=== PATIENT | female | born 2000 | race American Indian/Alaskan Native ===

== ENCOUNTER 2021-06-18 11:47 | Observation (INO) | payer OTHER ==
--- NOTE | 2021-06-18 11:58 | Event Note ---
ED Screening Note ED Screening Note: Patient states 2 months ago she had a medical pill States since then she has had heavy vaginal bleeding She states that [place] [facility] [place] advised she had a hemoglobin of 5 and states that she received a blood transfusion States that she is [facility] on 06/21[facility]21 Reports to the ER due to pain, weakness, fatigue, and concerns that her blood counts are low She states that her bleeding has improved This initial assessment/diagnostic orders/clinical plan/treatment(s) is/are subject to change based on patients health status, clinical progression and re- assessment by fellow clinical providers in the ED. Further treatment and workup at subsequent clinical providers discretion. Patient/guardian urged not to elope from the ED as their condition may be serious if not clinically assessed and managed. Initial orders include: Labs
[2021-06-18 12:58] LABS: Alanine Aminotransferase 22 units/L (7-56); Albumin 4.1 g/dL (3.9-5); Blood Urea Nitrogen 12 mg/dL (7-17); Calcium 9.2 mg/dL (8.4-10.2); Hemolysis Index 2
[2021-06-18 13:09] LABS: BUN/Creatinine Ratio 24
[2021-06-18 14:58] LABS: Basophils # (Auto) 0.1 K/mm3 (0.0-0.1); Basophils % (Auto) 1.5 % (0.0-1.8); Eosinophils # (Auto) 0.1 K/mm3 (0.0-0.4); Eosinophils % (Auto) 1.7 % (0.0-4.3); Lymphocytes % (Auto) 13.4 % (13.4-35.0); Mean Corpuscular HGB Conc 32 % (30-34); Mean Corpuscular Volume 80 fl (79-97); Monocytes # (Auto) 0.5 K/mm3 (0.0-0.8); Monocytes % (Auto) 7.6 % (0.0-7.3); Platelet Count 268 K/mm3 (140-440); Red Cell Distribution Width 19.8 % (13.2-15.2)
[2021-06-18 15:02] LABS: Hematocrit 17.6 % (30.3-42.9); Hemoglobin 5.7 gm/dl (10.1-14.3)
[2021-06-18] MEDS ORDERED: LORazepam 2 MG/ML VIAL IV ONE (17:41)
--- NOTE | 2021-06-18 17:55 | Ultrasound Report ---
US pelvic complete INDICATION / CLINICAL INFORMATION: vaginal bleeding. TECHNIQUE: Transabdominal and Transvaginal. Duplex Color Doppler used: Yes. COMPARISON: None available FINDINGS: UTERUS: Measures 11.8 cm. -Thickened endometrial stripe measures 1.6 cm with increased hyperemia. - Mass lesions: None. RIGHT ADNEXA: No significant ovarian cyst or mass. Normal color Doppler blood flow. LEFT ADNEXA: No significant ovarian cyst or mass. Normal color Doppler blood flow. URINARY BLADDER: No significant abnormality. FREE FLUID: None. ADDITIONAL FINDINGS: None. IMPRESSION: 1. Findings consistent with retained products of conception. Signer Name: Steve Andrew MD Signed: 06/18/2021 5:50 PM Workstation Name: [id number]
[2021-06-18] MEDS ORDERED: SODIUM CHLORIDE 0.9% 500 ML 500 ML ONE (18:02)
[2021-06-18] MEDS ORDERED: SODIUM CHLORIDE 0.9% 500 ML 500 ML IV ONE (18:02)
--- NOTE | 2021-06-18 18:08 | Emergency Department Report ---
ED General Adult HPI - General Chief complaint: Vaginal Bleeding Stated complaint: DIFF BREATHING Time Seen by Provider: 06/18/21 11:56 Source: patient, family Mode of arrival: Wheelchair Limitations: No Limitations - History of Present Illness Initial comments: Patient presents to the emergency department with a chief complaint of vaginal bleeding that has been present for the last 2 months. Patient states that 2 months ago she took a pill to terminate and since that time has not had cessation of vaginal bleeding. Patient states that on 05/01/2021 she was seen at [facility] at the main campus and was transfused 2 units of blood and told to follow-up with gynecology. Patient states she is scheduled for a D&C with [facility] on Thursday of this week. Patient complains of mild abdominal cramping. Patient states that she is having exertional shortness of breath especially when walking. Denies chest pain. -: Sudden, unknown (2 months ago) Location: abdomen Radiation: non-radiation Severity scale (0 -10): 2 (Cramping in nature) Quality: other (Cramping in nature) Consistency: constant Improves with: none Worsens with: none Associated Symptoms: denies other symptoms Treatments Prior to Arrival: none - Related Data Home Medications Medication Instructions Recorded Confirmed Last Taken Ferrous Sulfate [Feosol] 325 mg PO QDAY 06/17/21 06/17/21 Unknown Allergies Allergy/AdvReac Type Severity Reaction Status Date / Time No Known Allergies Allergy Verified 06/17/21 15:00 ED Review of Systems ROS: Stated complaint: DIFF BREATHING Other details as noted in HPI Comment: All other systems reviewed and negative Constitutional: denies: chills, fever Eyes: denies: eye pain, eye discharge, vision change ENT: denies: ear pain, throat pain Respiratory: denies: cough, shortness of breath, wheezing Cardiovascular: denies: chest pain, palpitations Endocrine: no symptoms reported Gastrointestinal: denies: abdominal pain, nausea, diarrhea Genitourinary: other (Vaginal bleeding). denies: urgency, dysuria, discharge Musculoskeletal: denies: back pain, joint swelling, arthralgia Skin: denies: rash, lesions Neurological: denies: headache, weakness, paresthesias Psychiatric: denies: anxiety, depression Hematological/Lymphatic: denies: easy bleeding, easy bruising ED Past Medical Hx - Past Medical History Previous Medical History?: Yes Hx Hypertension: No Hx Headaches / Migraines: Yes (MIGRAINES) Additional medical history: SVT. high cholestrol. anemia - Surgical History Additional Surgical History: ablation 10/2014 - Social History Smoking Status: Never Smoker - Medications Home Medications: Home Medications Medication Instructions Recorded Confirmed Last Taken Type Ferrous Sulfate [Feosol] 325 mg PO QDAY 06/17/21 06/17/21 Unknown History ED Physical Exam - General Limitations: No Limitations General appearance: alert, in no apparent distress - Head Head exam: Present: atraumatic, normocephalic - Eye Eye exam: Present: normal appearance, PERRL, EOMI - ENT ENT exam: Present: mucous membranes moist - Neck Neck exam: Present: normal inspection - Respiratory Respiratory exam: Present: normal lung sounds bilaterally. Absent: respiratory distress - Cardiovascular Cardiovascular Exam: Present: normal rhythm, tachycardia. Absent: systolic murmur, diastolic murmur, rubs, gallop - GI/Abdominal GI/Abdominal exam: Present: soft, normal bowel sounds. Absent: distended, tenderness - External exam: Present: other (Deferred) Speculum exam: Present: other (Deferred) Bi-manual exam: Present: other (Deferred) - Extremities Exam Extremities exam: Present: normal inspection - Back Exam Back exam: Present: normal inspection - Neurological Exam Neurological exam: Present: alert, oriented X3, CN II-XII intact. Absent: motor sensory deficit - Psychiatric Psychiatric exam: Present: normal affect, normal mood, anxious - Skin Skin exam: Present: warm, dry, intact, normal color. Absent: rash ED Course Vital Signs 06/18/21 15:36 O2 Sat by Pulse 98 Oximetry ED Medical Decision Making - Lab Data Result diagrams: 06/18/21 12:17 06/18/21 12:17 Lab Results 06/18/21 06/18/21 06/18/21 Range/Units 12:17 12:17 12:17 WBC 7.2 (4.5-11.0) K/mm3 RBC 2.20 L (3.65-5.03) M/mm3 Hgb 5.7 L* (10.1-14.3) gm/dl Hct 17.6 L* (30.3-42.9) % MCV 80 (79-97) fl MCH 26 L (28-32) pg MCHC 32 (30-34) % RDW 19.8 H (13.2-15.2) % Plt Count 268 (140-440) K/mm3 Lymph % (Auto) 13.4 (13.4-35.0) % [place] % (Auto) 7.6 H (0.0-7.3) % Eos % (Auto) 1.7 (0.0-4.3) % Baso % (Auto) 1.5 (0.0-1.8) % Lymph # (Auto) 1.0 L (1.2-5.4) K/mm3 [place] # (Auto) 0.5 (0.0-0.8) K/mm3 Eos # (Auto) 0.1 (0.0-0.4) K/mm3 Baso # (Auto) 0.1 (0.0-0.1) K/mm3 Seg Neutrophils % 75.8 H (40.0-70.0) % Seg Neutrophils # 5.5 (1.8-7.7) K/mm3 Sodium 137 (137-145) mmol/L Potassium 3.7 (3.6-5.0) mmol/L Chloride 103.1 (98-107) mmol/L Carbon Dioxide 21 L (22-30) mmol/L Anion Gap 17 mmol/L BUN 12 (7-17) mg/dL Creatinine 0.5 L (0.6-1.2) mg/dL Estimated GFR > 60 ml/min BUN/Creatinine Ratio 24 % Glucose 89 (65-100) mg/dL Calcium 9.2 (8.4-10.2) mg/dL Total Bilirubin 0.30 (0.1-1.2) mg/dL AST 24 (5-40) units/L ALT 22 (7-56) units/L Alkaline Phosphatase 72 (35-129) units/L Total Protein 6.7 (6.3-8.2) g/dL Albumin 4.1 (3.9-5) g/dL Albumin/Globulin Ratio 1.6 % HCG, Quant 67.32 H (0-4) mIU/mL Blood Type Antibody Screen Crossmatch 06/18/21 Range/Units 12:20 WBC (4.5-11.0) K/mm3 RBC (3.65-5.03) M/mm3 Hgb (10.1-14.3) gm/dl Hct (30.3-42.9) % MCV (79-97) fl MCH (28-32) pg MCHC (30-34) % RDW (13.2-15.2) % Plt Count (140-440) K/mm3 Lymph % (Auto) (13.4-35.0) % [place] % (Auto) (0.0-7.3) % Eos % (Auto) (0.0-4.3) % Baso % (Auto) (0.0-1.8) % Lymph # (Auto) (1.2-5.4) K/mm3 [place] # (Auto) (0.0-0.8) K/mm3 Eos # (Auto) (0.0-0.4) K/mm3 Baso # (Auto) (0.0-0.1) K/mm3 Seg Neutrophils % (40.0-70.0) % Seg Neutrophils # (1.8-7.7) K/mm3 Sodium (137-145) mmol/L Potassium (3.6-5.0) mmol/L Chloride (98-107) mmol/L Carbon Dioxide (22-30) mmol/L Anion Gap mmol/L BUN (7-17) mg/dL Creatinine (0.6-1.2) mg/dL Estimated GFR ml/min BUN/Creatinine Ratio % Glucose (65-100) mg/dL Calcium (8.4-10.2) mg/dL Total Bilirubin (0.1-1.2) mg/dL AST (5-40) units/L ALT (7-56) units/L Alkaline Phosphatase (35-129) units/L Total Protein (6.3-8.2) g/dL Albumin (3.9-5) g/dL Albumin/Globulin Ratio % HCG, Quant (0-4) mIU/mL Blood Type O POSITIVE Antibody Screen Negative Crossmatch See Detail - Radiology Data Radiology results: report reviewed - Medical Decision Making Blood transfusion initiated in the ED Discussed plan of care and results with the patient Spoke with Dr. Mckeon who will admit the patient to mother-baby Critical Care Time: Yes Critical care time in (mins) excluding proc time.: 35 Critical care attestation.: If time is entered above; I have spent that time in minutes in the direct care of this critically ill patient, excluding procedure time. ED Disposition Clinical Impression: Anemia requiring transfusions, DUB (dysfunctional uterine bleeding), Retained products of conception Disposition: 09 OP ADMIT IP TO THIS HOSP Is pt being admited?: Yes Does the pt Need Aspirin: No Condition: Fair Referrals: PRIMARY CARE, [Primary Care Provider] - 3-5 Days
[2021-06-18] MEDS ORDERED: HYDROcodone/ACETAMINOPHEN 5-325 MG TAB PO PRN (21:23)
[2021-06-18] MEDS ORDERED: LACTATED RINGERS 1,000 ML IV SCH (21:30)
--- NOTE | 2021-06-18 21:50 | History and Physical Report ---
History of Present Illness Date of examination: 06/18/21 Date of admission: 06/18/21 18:14 Chief complaint: anemia and vaginal bleeding. History of present illness: Patient is a 20-year-old Afro-Swedish female 1 para 0-0-1-0. She had a medically induced several weeks ago. Her ultrasound shows tissue inside endometrial cavity and the patient is bleeding and has anemia. She is scheduled for D&C on Thursday this week. She was admitted for observation with transfusion of 2 units of packed cells today. Past History Past Medical History: no pertinent history Past Surgical History: no surgical history Family/Genetic History: none Social history: single Medications and Allergies Allergies Allergy/AdvReac Type Severity Reaction Status Date / Time No Known Allergies Allergy Verified 06/17/21 15:00 Home Medications Medication Instructions Recorded Confirmed Last Taken Type Ferrous Sulfate [Feosol] 325 mg PO QDAY 06/17/21 06/17/21 Unknown History Active Meds: Active Medications Hydrocodone Bitart/Acetaminophen (Hydrocodone/Acetaminophen 5-325 Mg Tab) 1 each PO Q6H PRN PRN Reason: Pain, Moderate (4-6) Lactated Ringer's (Lactated Ringers) 1,000 mls @ 125 mls/hr IV DIRECT MAIA Review of Systems All systems: negative - Vital Signs Vital signs: Vital Signs Temp Pulse Resp BP Pulse Ox 98.3 F 115 H 20 123/50 100 06/18/21 11:53 06/18/21 11:53 06/18/21 11:53 06/18/21 11:53 06/18/21 11:53 Temp Pulse Resp BP Pulse Ox 98.8 F 97 H 20 128/73 100 06/18/21 20:40 06/18/21 20:40 06/18/21 20:40 06/18/21 20:40 06/18/21 20:40 - Physical Exam Breasts: Cardiovascular: Regular rate, Normal S1, Normal S2 Abdomen: Positive: normal appearance, soft, normal bowel sounds. Negative: distention, tenderness Genitourinary (Female): Positive: normal external genitalia Vulva: both: normal Vagina: Positive: normal moisture. Negative: discharge Cervix: Positive: other (Blood in cervix cervix slightly dilated). Negative: lesion, discharge Uterus: Positive: normal size, normal contour Adnexa: both: normal Anus/Rectum: Positive: normal perianal skin, heme negative. Negative: rectal mass, hemorrhoids Extremities: Positive: normal Deep Tendon Reflex Grade: Normal +2 Results Result Diagrams: 06/18/21 12:17 06/18/21 12:17 Abnormal lab results 06/18/21 06/18/21 06/18/21 Range/Units 12:17 12:17 12:17 RBC 2.20 L (3.65-5.03) M/mm3 Hgb 5.7 L* (10.1-14.3) gm/dl Hct 17.6 L* (30.3-42.9) % MCH 26 L (28-32) pg RDW 19.8 H (13.2-15.2) % [place] % (Auto) 7.6 H (0.0-7.3) % Lymph # (Auto) 1.0 L (1.2-5.4) K/mm3 Seg Neutrophils % 75.8 H (40.0-70.0) % Carbon Dioxide 21 L (22-30) mmol/L Creatinine 0.5 L (0.6-1.2) mg/dL HCG, Quant 67.32 H (0-4) mIU/mL Crossmatch 06/18/21 Range/Units 12:20 RBC (3.65-5.03) M/mm3 Hgb (10.1-14.3) gm/dl Hct (30.3-42.9) % MCH (28-32) pg RDW (13.2-15.2) % [place] % (Auto) (0.0-7.3) % Lymph # (Auto) (1.2-5.4) K/mm3 Seg Neutrophils % (40.0-70.0) % Carbon Dioxide (22-30) mmol/L Creatinine (0.6-1.2) mg/dL HCG, Quant (0-4) mIU/mL Crossmatch See Detail All other labs normal. Assessment and Plan - Patient Problems (1) Anemia requiring transfusions Current Visit: Yes Status: Acute (2) DUB (dysfunctional uterine bleeding) Current Visit: Yes Status: Acute (3) Retained products of conception Current Visit: Yes Status: Acute Plan to address problem: Transfusion with 2 units of packed cells on today. The patient is to have a D&C suction curettage in 3 days this hospital.
[2021-06-18] MEDS ORDERED: ZOLPIDEM 5 MG TAB PO PRN (21:56)
[2021-06-19 06:40] LABS: Hematocrit 23.1 % (30.3-42.9); Hemoglobin 7.7 gm/dl (10.1-14.3)
--- NOTE | 2021-06-19 08:50 | Ultrasound Report ---
ULTRASOUND TRANSVAGINAL HISTORY: Vaginal bleeding TECHNIQUE: Transvaginal ultrasound with color Doppler imaging. COMPARISON: Ultrasound pelvic transabdominal performed at the same time. FINDINGS: This examination is just presented to me for interpretation due to technical factors at the hospital. The transabdominal component of this exam was dictated yesterday by another radiologist. Transvaginal images demonstrate a retroflexed uterus measuring 11.8 x 3.7 x 5.6 cm. No obvious uterin e fibroid disease is appreciated. The endometrial stripe is heterogeneous with cystic and solid components and thickened up to 1.6 cm a nd demonstrates hyperemia on color Doppler interrogation. The right ovary is unremarkable measuring 3.7 x 2.6 x 4.1 cm. The left ovary is unremarkable measurin g 3.0 x 2.2 x 3.4 cm. No pelvic fluid collection, cyst or mass is appreciated. IMPRESSION: Abnormal endometrium as described above concerning for retained products of conception. Please correl ate with the patient's clinical history. Signer Name: Tee Shah Jr, MD Signed: 06/19/2021 8:45 AM Workstation Name: [id number]
[2021-06-19 12:18] VITALS: BP 131/76
--- NOTE | 2021-06-19 12:24 | Discharge Summary ---
Providers - Providers Date of Admission: 06/18/21 18:14 Date of discharge: 06/19/21 Attending physician: RIVERA HALL MD Primary care physician: DOUGH MIXER OPERATOR Hospitalization Reason for admission: vaginal bleeding, other (symptomatic anemia) Hospital course: 20-year-old complicated by history of anemia status post transfusion x1 in April 2021 at [facility], history of failed medical with planned D&C this Thursday06-21-2021 presenting with symptomatic anemia admitted for 2 units of blood and observation. Patient reports that she is much better status post transfusion and is agreeable for discharge with plan for surgical management of retained products of conception this Thursday06-21-2021. Condition at discharge: Fair Disposition: DC-01 TO HOME OR SELFCARE Plan - Provider Discharge Summary Activity: routine Diet: routine Instructions: routine Additional instructions: [] Smoking cessation referral if applicable(refer to patient education folder for contact #) [] Refer to [facility] Booklet Call your doctor immediately for: * Fever > 100.5 * Heavy vaginal bleeding ( >1 pad per hour) * Severe persistent headache * Shortness of breath * Reddened, hot, painful area to leg or breast * Drainage or odor from incision. * Keep incision clean and dry at all times and follow doctor's instructions regarding bathing/showering - Follow up plan Follow up: PRIMARY CARE, [Primary Care Provider] - 3-5 Days Forms: [facility] Discharge Summary
== END 2021-06-19 13:20 | disposition home or self-care (01) ==
LOC: ED 11:47 → OB 18:14
DX: D64.9 Anemia, unspecified (principal); O07.4 Failed attempted termination of pregnancy without complication; N93.8 Other specified abnormal uterine and vaginal bleeding; G43.909 Migraine, unspecified, not intractable, without status migrainosus; E78.00 Pure hypercholesterolemia, unspecified; I47.1 Supraventricular tachycardia; Z79.899 Other long term (current) drug therapy; Z98.890 Other specified postprocedural states
CPT/HCPCS: 36415; 36430; 76830; 76856; 80053; 84702; 85014; 85018; 85025; 86850; 86900; 86901; 86920; 96374; 99291; G0378; J2060; J7040; J7120; P9016

== ENCOUNTER 2021-06-21 08:50 | Day surgery (SDC) | payer MEDICAID, OTHER ==
[2021-06-21] MEDS ORDERED: HYDROmorphone 1 MG/1 ML INJ IV PRN (09:29)
[2021-06-21] MEDS ORDERED: ONDANSETRON 4 MG/2 ML INJ IV PRN (09:29)
[2021-06-21] MEDS ORDERED: LACTATED RINGERS 1,000 ML IV SCH (09:30)
--- NOTE | 2021-06-21 09:33 | Anesthesia Day of Surgery ---
Anesthesia Day of Surgery - Day of Surgery Patient Examined: Yes Patient H&P Reviewed: Yes Patient is NPO: Yes
--- NOTE | 2021-06-21 09:36 | Anesthesia Consultation ---
Anesthesia Consult and Med Hx Date of service: 06/21/21 - Airway Anesthetic Teeth Evaluation: Good (Has tooth gems cemented on) ROM Head & Neck: Adequate Mental/Hyoid Distance: Adequate Mallampati Class: Class I Intubation Access Assessment: Good - Pre-Operative Health Status ASA Pre-Surgery Classification: ASA3 Proposed Anesthetic Plan: General - Pulmonary Hx Smoking: Yes (smoking Hookah) Hx Asthma: No SOB: No COPD: No Hx Pneumonia: No Hx Sleep Apnea: No - Cardiovascular System Hx Hypertension: No Hx Coronary Artery Disease: No Hx Heart Attack/AMI: No Hx Angina: No Hx Percutaneous Transluminal Coronary Angioplasty (PTCA): No Hx Cardia Arrhythmia: Yes (Hx SVT-had ablation. Reports palpitations) Hx Pacemaker: No Hx Internal Defibrillator: No Hx Valvular Heart Disease: No Hx Heart Murmur: Yes Hx Peripheral Vascular Disease: No - Central Nervous System CVA: Yes (? Was seen in our ER for CVA) Hx Back Pain: No Hx Psychiatric Problems: No - Gastrointestinal Hx Ulcer: No - Endocrine Hx Renal Disease: No Hx End Stage Renal Disease: No Hx Cirrhosis: No Hx Liver Disease: No Hx Hypothyroidism: No Hx Hyperthyroidism: No - Hematic Hx Anemia: Yes (Was 5.7/17.6 and tx'd blood to 7.7/23.1 [id number]) Hx Sickle Cell Disease: No - Other Systems Hx Alcohol Use: Yes (occassional) Hx Substance Use: Yes (MJ) Hx Cancer: No Hx Obesity: No
[2021-06-21] MEDS ORDERED: MIDAZOLAM 2 MG/2 ML INJ IV NR (10:00)
[2021-06-21] MEDS ORDERED: SILVER NITRATE APPLICATOR 1 EA TP ONE (10:08)
[2021-06-21] MEDS ORDERED: METHYLERGONOVINE MALEATE 0.2 MG/ML VIAL IM ONE (10:09)
[2021-06-21] MEDS ORDERED: LIDOCAINE PF 100 MG/5 ML (CARDIAC SYRINGE) IV ONE (10:35)
[2021-06-21] MEDS ORDERED: fentaNYL 100 MCG/2 ML INJ ONE (10:35)
[2021-06-21] MEDS ORDERED: propofoL 200 MG/20 ML VIAL IV ONE (10:35)
[2021-06-21 10:38] LABS: Hemoglobin 9.9 gm/dl (10.1-14.3); Mean Corpuscular HGB Conc 32 % (30-34); Mean Corpuscular Volume 84 fl (79-97); Platelet Count 275 K/mm3 (140-440); Red Blood Count 3.68 M/mm3 (3.65-5.03); Red Cell Distribution Width 19.8 % (13.2-15.2)
--- NOTE | 2021-06-21 10:46 | Operative Report ---
Operative Report Operative Report: Preoperative diagnosis: Incomplete Postoperative diagnosis: Same Procedure: Suction dilation and curettage Surgeon: Dr. Yani Del Toro Assist: None Anesthesia: GETA Complications: None IV fluids: 1 L crystalloid EBL: Minimal Urine output: 100 cc clear urine Drains: None Specimen: Products of conception sent to pathology Findings: 6-week size uterus with no palpable adnexal masses Procedure: Patient was counseled in preop holding area about risks benefits possible complications as well as alternatives to the procedure. Form consent was obtained. She was taken to the operating room where she received excellent general endotracheal anesthesia. She was then placed in the dorsal lithotomy p osition, prepped and draped in a sterile fashion. A timeout was verified. Using a red rubber the catheter 100 cc of clear urine was obtained. Speculum was then placed in the vaginal vault, the cervix was identified and grasped on the anterior lip with a single-tooth tenaculum. The cervix was dilated to allow for passage of a #8 curved suction curette. Products of conception were then evacuated using suction, the uterus confirmed empty using a Kevorkian curette at the completion of the procedure. Minimal vaginal bleeding during the procedure. The tenaculum and speculum were removed from the anterior lip of the cervix and the vagina respectively at the completion of the procedure. The uterus is noted to be firm at the completion of the procedure. All sponge needle and instrument counts were correct x2. There were no complications. Patient was extubated and taken to the recovery area in stable condition. Patient's family notified of her stable condition at the completion of the procedure. She will follow-up in the outpatient setting in 1 week. Rosangela Del Toro MD
[2021-06-21] MEDS ORDERED: SODIUM CHLORIDE 0.9% IRR 1,500 ML BOTTLE IR ONE (10:52)
[2021-06-21] MEDS ORDERED: ONDANSETRON 4 MG/2 ML INJ ONE (11:14)
[2021-06-21] MEDS: HYDROmorphone 1 MG/1 ML INJ IV PRN ×2 (11:40→11:50)
[2021-06-21 12:00] VITALS: BP 117/78
--- NOTE | 2021-06-21 14:26 | Post Anesthesia Evaluation ---
- Post Anesthesia Evaluation Patient Participated: Yes Airway Patent: Yes Stable Respiratory Function: Yes Nausea/Vomiting: No Temp > 96.8F: Yes Pain Manageable: Yes Adequeate Hydration: Yes Anesthesia Complications: No Block Receding Appropriately: Not Applicable Patient on Ventilator: No
== END 2021-06-21 12:29 | disposition home or self-care (01) ==
LOC: OR 08:50
PROVIDERS: ATTEND Obstetrics & Gynecology
DX: O03.4 Incomplete spontaneous abortion without complication (principal); D64.9 Anemia, unspecified; Z79.899 Other long term (current) drug therapy; Z98.890 Other specified postprocedural states; Z82.49 Family history of ischemic heart disease and other diseases of the circulatory system
CPT/HCPCS: 36415; 59812; 85027; 88305; J1170; J2001; J2250; J2405; J2704; J3010; J7120; J2210

== ENCOUNTER 2022-05-16 10:18 | Outpatient (CLI) | payer OTHER, MEDICAID ==
[2022-05-16 12:41] LABS: Mucus,Urine FEW /HPF
[2022-05-16 12:43] LABS: Bilirubin,Urine Negative (Negative); Blood,Urine Negative (Negative); Color,Urine Straw (Yellow)
[2022-05-16 12:44] LABS: Protein,Urine <15 mg/dL mg/dL (Negative); Urobilinogen,Urine < 2.0 mg/dL (<2.0)
--- NOTE | 2022-05-16 13:07 | Ultrasound Report ---
ULTRASOUND OBSTETRIC LIMITED ULTRASOUND BIOPHYSICAL PROFILE INDICATION / CLINICAL INFORMATION: Leaking Fluid, Well Being, BPP RHODA. - Clinical Gestational Age (GA) in weeks, days: 31, 3 TECHNIQUE: Transabdominal. COMPARISON: None available. FINDINGS: BREATHING MOVEMENT = 2 GROSS BODY MOVEMENT = 2 TONE = 2 QUALITATIVE AMNIOTIC FLUID VOLUME = 2 TOTAL BIOPHYSICAL SCORE = 8/8 HEART RATE (beats per minute): 125-133 AMNIOTIC FLUID INDEX (cm) = 12.7 (normal = 7-24 cm) PRESENTATION: Cephalic. ADDITIONAL FINDINGS: None. IMPRESSION: 1. Biophysical Score = 8/8 2. RHODA 12.7 cm. Signer Name: Octavio Jackson MD Signed: 05/16/2022 1:03 PM Workstation Name: [email or web address]
[2022-05-16 13:40] VITALS: BP 112/63
[2022-05-16] MEDS ORDERED: BETAMET ACET/BETAMET NA PH 6 MG/ML INJ 5 ML MDV IM SCH (14:00)
== END 2022-05-16 14:18 | disposition home or self-care (01) ==
LOC: TRG 10:18 → APU 10:23 → TRG 14:18
PROVIDERS: ATTEND Obstetrics & Gynecology
DX: O42.913 Preterm premature rupture of membranes, unspecified as to length of time between rupture and onset of labor, third trimester (principal); O26.893 Other specified pregnancy related conditions, third trimester; R10.30 Lower abdominal pain, unspecified; O99.353 Diseases of the nervous system complicating pregnancy, third trimester; G43.909 Migraine, unspecified, not intractable, without status migrainosus; Z3A.31 31 weeks gestation of pregnancy
CPT/HCPCS: 36415; 59025; 76815; 76819; 81001; 82731; 84112; 96372; J0702

== ENCOUNTER 2022-05-17 13:23 | Outpatient (CLI) | payer OTHER, MEDICAID ==
[2022-05-17] MEDS ORDERED: BETAMET ACET/BETAMET NA PH 6 MG/ML INJ 5 ML MDV IM ONE (13:41)
== END 2022-05-17 14:19 | disposition home or self-care (01) ==
LOC: LD 13:23 → TRG 13:23
PROVIDERS: ATTEND Obstetrics & Gynecology
DX: Z34.93 Encounter for supervision of normal pregnancy, unspecified, third trimester (principal); Z3A.31 31 weeks gestation of pregnancy
CPT/HCPCS: 96372; J0702

== ENCOUNTER 2022-06-22 18:22 | Outpatient (CLI) | payer MEDICAID ==
[2022-06-22 22:40] VITALS: BP 112/70
--- NOTE | 2022-06-22 23:17 | Ultrasound Report ---
ULTRASOUND OBSTETRIC LIMITED ULTRASOUND BIOPHYSICAL PROFILE INDICATION / CLINICAL INFORMATION: Evaluate well-being. COMPARISON: OB ultrasound performed on 05/16/2022. FINDINGS: BREATHING MOVEMENT = 2 GROSS BODY MOVEMENT = 2 TONE = 2 QUALITATIVE AMNIOTIC FLUID VOLUME = 2 TOTAL BIOPHYSICAL SCORE = 8/8 AMNIOTIC FLUID INDEX (cm) = 13.0 PRESENTATION: Cephalic. HEART RATE (beats per minute): 133 ADDITIONAL FINDINGS: None. IMPRESSION: 1. Biophysical Score = 8/8 2. No significant abnormality. Signer Name: James Lewis MD Signed: 06/22/2022 11:13 PM Workstation Name: [id number]
== END 2022-06-22 22:41 | disposition home or self-care (01) ==
LOC: TRG 18:22 → APU 18:22 → TRG 22:41
PROVIDERS: ATTEND Obstetrics & Gynecology
DX: O47.03 False labor before 37 completed weeks of gestation, third trimester (principal); O42.90 Premature rupture of membranes, unspecified as to length of time between rupture and onset of labor, unspecified weeks of gestation; Z3A.36 36 weeks gestation of pregnancy
CPT/HCPCS: 36415; 76815; 76819; 84112

== ENCOUNTER 2022-07-12 16:49 | Inpatient (IN) | payer MEDICAID ==
[2022-07-12] MEDS ORDERED: miSOPROStol 200 MCG TAB PR PRN (18:00)
[2022-07-12] MEDS ORDERED: LIDOCAINE (2%) 20 MG/1 ML VIAL 20 ML MDV INFILTRATI NR (18:00)
[2022-07-12] MEDS ORDERED: ePHEDrine SULFATE 50 MG/1 ML INJ IV PRN (18:00)
[2022-07-12] MEDS ORDERED: ACETAMINOPHEN 325 MG TAB PO PRN (18:00)
[2022-07-12] MEDS ORDERED: CARBOPROST TROMETHAMINE 250 MCG/1 ML INJ IM PRN (18:00)
[2022-07-12] MEDS ORDERED: LOPERAMIDE 2 MG CAP PO PRN (18:00)
[2022-07-12] MEDS ORDERED: BUTORPHANOL 2 MG/1 ML INJ IV PRN ×2 (18:00)
[2022-07-12] MEDS ORDERED: OXYTOCIN 10 UNIT/1 ML INJ IM PRN (18:00)
[2022-07-12] MEDS ORDERED: LACTATED RINGERS 1,000 ML IV SCH (18:00)
[2022-07-12] MEDS ORDERED: METHYLERGONOVINE MALEATE 0.2 MG/ML VIAL IM PRN (18:00)
[2022-07-12] MEDS ORDERED: TERBUTALINE 1 MG/1 ML INJ SUB-Q PRN (18:00)
[2022-07-12] MEDS ORDERED: MINERAL OIL 30 ML ORAL LIQD PO PRN (18:00)
[2022-07-12] MEDS ORDERED: OXYTOCIN DRIP 30 UNITS/500 ML BAG IV SCH ×2 (19:00)
--- NOTE | 2022-07-12 19:29 | History and Physical Report ---
History of Present Illness Date of examination: 07/12/22 Date of admission: 07/12/22 18:09 Chief complaint: Here with C/O labor contractions History of present illness: 21 y/o AB1 presents to labor and delivery with C/O contractions. She had care at [facility]. She is GBS negative. She has a HX of SVT and a heart murmur and sees cardiology. Past History Past Medical History: other (HX of SVT- had ablation) Past Surgical History: other (ablation) Family/Genetic History: hypertension Social history: no significant social history - Obstetrical History Expected Date of Delivery: 07/15/22 Actual Gestation: 39 Week(s) 4 Day(s) : 2 Para: 0 Induced : 1 Medications and Allergies Allergies Allergy/AdvReac Type Severity Reaction Status Date / Time No Known Allergies Allergy Verified 05/16/22 11:26 Home Medications Medication Instructions Recorded Confirmed Last Taken Type Vit No.179/Iron/Folic 1 each PO DAILY 05/16/22 07/12/22 07/12/22 09:00 History [ Tablet] Active Meds: Active Medications Acetaminophen (Acetaminophen 325 Mg Tab) 650 mg PO Q4H PRN PRN Reason: Pain, Mild (1-3) Butorphanol Tartrate (Butorphanol 2 Mg/1 Ml Inj) 1 mg IV Q2H PRN PRN Reason: Pain, Moderate(4-6) LABOR PAIN Butorphanol Tartrate (Butorphanol 2 Mg/1 Ml Inj) 2 mg IV Q2H PRN PRN Reason: Pain , Severe (7-10) Carboprost Tromethamine (Carboprost Tromethamine 250 Mcg/1 Ml Inj) 250 mcg IM ONCE PRN PRN Reason: Uterine Bleeding Ephedrine Sulfate (Ephedrine Sulfate 50 Mg/1 Ml Inj) 10 mg IV Q2M PRN PRN Reason: Hypotension Oxytocin/Sodium Chloride (Pitocin/Ns 30 Unit/500ml) 30 units in 500 mls @ 2 mls/hr IV TITR MAIA; Protocol Lactated Ringer's (Lactated Ringers) 1,000 mls @ 125 mls/hr IV DIRECT MAIA Oxytocin/Sodium Chloride (Pitocin/Ns 30 Unit/500ml) 30 units in 500 mls @ 40 mls/hr IV TITR MAIA; Protocol Loperamide HCl (Loperamide 2 Mg Cap) 2 mg PO ONCE PRN PRN Reason: give with Hemabate Methylergonovine Maleate (Methylergonovine Maleate 0.2 Mg/Ml Vial) 0.2 mg IM ONCE PRN PRN Reason: Uterine Bleeding Mineral Oil (Mineral Oil 30 Ml Oral Liqd) 30 ml PO QHS PRN PRN Reason: Constipation Misoprostol (Misoprostol 200 Mcg Tab) 800 mcg NE ONCE PRN PRN Reason: Uterine Bleeding Oxytocin (Oxytocin 10 Unit/1 Ml Inj) 10 unit IM ONCE PRN PRN Reason: Uterine Bleeding Terbutaline Sulfate (Terbutaline 1 Mg/1 Ml Inj) 0.25 mg SUB-Q ONCE PRN PRN Reason: Hyperstimulation/Hypertonicity Review of Systems All systems: negative - Vital Signs Vital signs: Vital Signs Pulse BP Pulse Ox 94 H 137/88 99 07/12/22 17:14 07/12/22 17:14 07/12/22 17:14 Temp Pulse Resp BP Pulse Ox 84 147/94 98 07/12/22 19:20 07/12/22 18:44 07/12/22 19:20 - Physical Exam Breasts: Positive: deferred Cardiovascular: Regular rate Abdomen: Positive: soft Genitourinary (Female): Positive: normal external genitalia Vulva: both: normal Vagina: Positive: normal moisture Uterus: Positive: enlarged Adnexa: both: normal Deep Tendon Reflex Grade: Normal +2 - Obstetrical FHR: category 1 Uterine Contraction Monitor Mode: Palpation Cervical Dilatation: 3 Cervical Effacement Percentage: 70 station: -1 Uterine Contraction Frequency (min): every 4-6 Uterine Contraction Pattern: Irregular Uterine Contraction Intensity: Moderate Results All other labs normal. Assessment and Plan A: Early labor @ 39.4 weeks P: Admit and augment cytotec
[2022-07-12] MEDS ORDERED: miSOPROStol 25 MCG TAB VG PRN (19:33)
[2022-07-12 20:56] LABS: Hematocrit 35.4 % (30.3-42.9); Hemoglobin 12.6 gm/dl (10.1-14.3); Mean Corpuscular HGB Conc 36 % (30-34); Mean Corpuscular Volume 94 fl (79-97); Platelet Count 184 K/mm3 (140-440); Red Blood Count 3.75 M/mm3 (3.65-5.03); Red Cell Distribution Width 14.2 % (13.2-15.2)
[2022-07-13] MEDS ORDERED: NALOXONE 0.4 MG/1 ML INJ IV PRN (02:46)
[2022-07-13] MEDS ORDERED: ePHEDrine SULFATE 50 MG/1 ML INJ IV PRN (02:46)
[2022-07-13] MEDS ORDERED: fentaNYL-BUPIV 2 MCG/ML-0.125% 200 MCG/100 ML BAG EPIDURAL SCH (02:46)
--- NOTE | 2022-07-13 02:49 | Anesthesia Day of Surgery ---
Anesthesia Day of Surgery - Day of Surgery Patient Examined: Yes Patient H&P Reviewed: Yes Patient is NPO: Yes Beta Blockers: No Cardiac Clearance: No Pulmonary Clearance: No Dylon's Test: N/A
--- NOTE | 2022-07-13 02:49 | Anesthesia Consultation ---
Anesthesia Consult and Med Hx Date of service: 07/13/22 - Airway Anesthetic Teeth Evaluation: Good ROM Head & Neck: Adequate Mental/Hyoid Distance: Adequate Mallampati Class: Class II Intubation Access Assessment: Probably Good - Pulmonary Exam CTA: Yes - Cardiac Exam Cardiac Exam: RRR - Pre-Operative Health Status ASA Pre-Surgery Classification: ASA2 Proposed Anesthetic Plan: Epidural - Pulmonary Hx Smoking: Yes (smoking Hookah) Hx Asthma: No Hx Respiratory Symptoms: No SOB: No COPD: No Home Oxygen Therapy: No Hx Pneumonia: No Hx Sleep Apnea: No - Cardiovascular System Hx Hypertension: No Hx Coronary Artery Disease: No Hx Heart Attack/AMI: No Hx Angina: No Hx Percutaneous Transluminal Coronary Angioplasty (PTCA): No Hx Cardia Arrhythmia: Yes (Hx SVT-had ablation. Reports palpitations) Hx Pacemaker: No Hx Internal Defibrillator: No Hx Valvular Heart Disease: No Hx Heart Murmur: Yes Hx Peripheral Vascular Disease: No - Central Nervous System Hx Neuromuscular Disorder: No Hx Seizures: No CVA: Yes (? Was seen in our ER for CVA) Hx Back Pain: No Hx Psychiatric Problems: No - Gastrointestinal Hx Ulcer: No Hx Gastroesophageal Reflux Disease: No - Endocrine Hx Renal Disease: No Hx End Stage Renal Disease: No Hx Cirrhosis: No Hx Liver Disease: No Hx Insulin Dependent Diabetes: No Hx Non-Insulin Dependent Diabetes: No Hx Hypothyroidism: No Hx Hyperthyroidism: No - Hematic Hx Anemia: Yes Hx Sickle Cell Disease: No - Other Systems Hx Alcohol Use: No Hx Substance Use: Yes (MJ) Hx Cancer: No Hx Obesity: No
--- NOTE | 2022-07-13 02:56 | Progress Note ---
Labor Epidural - Labor Epidural Start Time: 02:27 Stop Time: :33 Performed by:: TANESHA OROZCO Procedure: Epidural Requested for Labor Pain. H&P and PT Chart reviewed and consent obtained. Time out performed and the procedure was explained, all questions answered. Patient was placed in a sitting position with monitors applied. The PTs back was prepped and draped in usual sterile fashion. The Skin was localized with 3 mL of 1% lidocaine at L3-L4. A 17-gauge Touhy epidural needle was advanced to LINO with saline at 7 cm and no blood/CSF was noted via epidural needle. Epidural catheter was advanced to 12 cm. There was negative aspiration for blood and CSF in the catheter and negative response to a test dose of 3 ml 1.5% lidocaine w/ Epi and a sterile dressing was applied Patient tolerated the procedure well and there were no immediate complications noted.
--- NOTE | 2022-07-13 06:36 | Procedure Note ---
OB Delivery Note - Delivery Date of Delivery: 07/13/22 Surgeon: JAHAIRA OLVERA Estimated blood loss: 500cc - Vaginal Delivery presentation: vertex Delivery position: OA Intrapartum events: none Delivery induction: none Delivery augmentation: rupture of membranes Delivery monitor: external FHT, external uterine Route of delivery: Delivery placenta: spontaneous Episiotomy: none Delivery laceration: none Anesthesia: epidural Delivery comments: of a viable female 7# 14 oz on 07/13/22 @ 0614 over intact perineum. Placenta delivered 3 VCI. 9/9. QBL 500cc. - Infant A at 1 minute: 9 at 5 minutes: 9 Gender: Female (7# 14 oz)
[2022-07-13] MEDS ORDERED: ACETAMINOPHEN 325 MG TAB PO PRN (06:37)
[2022-07-13] MEDS ORDERED: diphenhydrAMINE 25 MG CAP PO PRN (06:37)
[2022-07-13] MEDS ORDERED: LANOLIN/ZINC/DIMETHICONE (LANSINOH) 7 GM TP PRN (06:37)
[2022-07-13] MEDS ORDERED: WITCH HAZEL/ GLYCERIN PAD TP PRN (06:37)
[2022-07-13] MEDS ORDERED: MAGNESIUM HYDROXIDE (MOM) ORAL LIQD UDC PO PRN (06:37)
[2022-07-13] MEDS ORDERED: oxyCODONE /ACETAMINOPHEN 5-325MG TAB PO PRN (06:37)
[2022-07-13] MEDS ORDERED: fentaNYL 100 MCG/2 ML INJ ONE (08:34)
--- NOTE | 2022-07-13 09:29 | Event Note ---
Date: 07/13/22 (824) 21yo s/p @ 0614 passing clots. On exam boggy lower uterine segment. 300ml of clots of blood removed from lower uterus. While examining the clots a piece of placenta is noted. During this process, Methergine IM, IVPB pitocin infusing, cytotec 800mcg VA, and Fentanyl 100mcg IVP was administered. Patient tolerated procedure well, Currently stable. Total of 1100ml EBL ( includes delivery).
--- NOTE | 2022-07-13 10:54 | Post Anesthesia Evaluation ---
- Post Anesthesia Evaluation Patient Participated: Yes Airway Patent: Yes Stable Respiratory Function: Yes Nausea/Vomiting: No Temp > 96.8F: Yes Pain Manageable: Yes Adequeate Hydration: Yes Anesthesia Complications: No Block Receding Appropriately: Yes Patient on Ventilator: No
--- NOTE | 2022-07-13 12:45 | Event Note ---
Date: 07/13/22 (4988) Re-assess patient, FFMBU, scant blood noted on pad. Pt ambulating to restroom.
[2022-07-13] MEDS: IBUPROFEN 800 MG TAB PO SCH ×2 (16:03→21:30)
[2022-07-13 21:44] LABS: Basophils % (Auto) 0.2 % (0.0-1.8); Eosinophils # (Auto) 0.1 K/mm3 (0.0-0.4); Hematocrit 31.4 % (30.3-42.9); Hemoglobin 10.9 gm/dl (10.1-14.3); Lymphocytes # (Auto) 1.7 K/mm3 (1.2-5.4); Lymphocytes % (Auto) 17.6 % (13.4-35.0); Mean Corpuscular HGB Conc 35 % (30-34); Mean Corpuscular Volume 95 fl (79-97); Monocytes # (Auto) 0.8 K/mm3 (0.0-0.8); Monocytes % (Auto) 7.7 % (0.0-7.3); Platelet Count 181 K/mm3 (140-440); Red Cell Distribution Width 14.3 % (13.2-15.2)
[2022-07-14] MEDS: IBUPROFEN 800 MG TAB PO SCH ×2 (05:38→11:39)
--- NOTE | 2022-07-14 14:04 | Progress Note ---
Assessment and Plan PPD#1 doing well 1. routine care and discharge home later today Subjective Date of service: 07/14/22 Principal diagnosis: PPD#1 Interval history: pt has no complaints and wants to go home today. pt vag bleed less than a period, denies pelvic pain, voiding without difficulty and is bottle and breast feeding. Objective - Constitutional Vitals: Vital Signs - 12hr 07/14/22 07/14/22 07/14/22 05:38 08:24 08:38 Temperature 98.1 F Pulse Rate 78 Respiratory 18 18 Rate Blood Pressure 121/80 [Left] O2 Sat by Pulse 100 Oximetry O2 Sat by Pulse 99 Oximetry [ Bilateral] General appearance: Present: no acute distress - Neck Neck: normal ROM - Respiratory Respiratory effort: normal - Breasts Breasts: deferred - Cardiovascular Rhythm: regular Extremities: No edema - Gastrointestinal General gastrointestinal: Present: soft, non-tender - Genitourinary Female genitourinary: other (fundus non-tender 1cm below umbilicus) - Integumentary Integumentary: warm, dry - Neurologic Neurologic: moves all extremities - Psychiatric Psychiatric: cooperative - Labs CBC & Chem 7: 07/13/22 19:58 Labs: Abnormal lab results 07/13/22 Range/Units 19:58 RBC 3.30 L (3.65-5.03) M/mm3 MCH 33 H (28-32) pg MCHC 35 H (30-34) % [place] % (Auto) 7.7 H (0.0-7.3) % Seg Neutrophils % 73.5 H (40.0-70.0) % Medications & Allergies - Medications Allergies/Adverse Reactions: Allergies No Known Allergies Allergy (Verified 05/16/22 11:26) Home Medications: Home Medications Medication Instructions Recorded Confirmed Last Taken Type Vit No.179/Iron/Folic 1 each PO DAILY 05/16/22 07/12/22 07/12/22 09:00 History [ Tablet] Active Medications: Generic Name Dose Route Start Last Admin Trade Name Freq PRN Reason Stop Dose Admin Acetaminophen 650 mg 07/13/22 06:37 Acetaminophen 325 Mg Tab PO Q4H PRN Pain MILD(1-3)/Fever >100.5/PAVON Bisacodyl 10 mg 07/13/22 06:37 Bisacodyl 10 Mg Rect Supp TX BID PRN Constipation Diphenhydramine HCl 25 mg 07/13/22 06:37 Diphenhydramine 25 Mg Cap PO Q6H PRN Itching Ibuprofen 800 mg 07/13/22 07:00 07/14/22 11:39 Ibuprofen 800 Mg Tab PO 800 mg Q6H MAIA Administration Magnesium Hydroxide 30 ml 07/13/22 06:37 Magnesium Hydroxide (Mom) Oral Liqd Udc PO HS PRN Constipation Multi-Ingredient Ointment 1 applic 07/13/22 06:37 Lanolin/Zinc/Dimethicone (Lansinoh) 7 Gm TP PRN PRN Sore Nipples Oxycodone/Acetaminophen 1 tab 07/13/22 06:37 Oxycodone /Acetaminophen 5-325mg Tab PO Q6H PRN Pain, Moderate (4-6) Witch Dee/Glycerin 1 each 07/13/22 06:37 Witch Dee/ Glycerin Pad TP PRN PRN Hemorrhoid/cleansing/soothing
--- NOTE | 2022-07-14 14:07 | Discharge Summary ---
Providers - Providers Date of Admission: 07/12/22 18:09 Date of discharge: 07/14/22 Attending physician: JIMMY MOODY 07/14/22 12:09 Consult to Case Management [CONS] Routine Services Needed at Discharge: Properties Supervisor Notified:: Jasson Phone number called:: [phone] Was contact made?: Yes If yes, spoke with:: Jasson Time called:: 12:11 Comment:: Mom needs a Car seat Primary care physician: JIMMY MOODY Hospitalization Reason for admission: IUP at term Delivery: Episiotomy: none Laceration: none Other procedures: none complications: none Discharge diagnosis: IUP at term delivered [place] baby: female Hospital course: Term with uncomplicated . uneventful. Condition at discharge: Good Disposition: 01 HOME / SELF CARE / HOMELESS Plan - Provider Discharge Summary Additional instructions: [] Smoking cessation referral if applicable(refer to patient education folder for contact #) [] Refer to [facility] Booklet Call your doctor immediately for: * Fever > 100.5 * Heavy vaginal bleeding ( >1 pad per hour) * Severe persistent headache * Shortness of breath * Reddened, hot, painful area to leg or breast * Drainage or odor from incision. * Keep incision clean and dry at all times and follow doctor's instructions regarding bathing/showering - Follow up plan Follow up: JIMMY MOODY MD [Primary Care Provider] - 6 Weeks
[2022-07-14 15:06] VITALS: BP 118/76
== END 2022-07-14 15:14 | disposition home or self-care (01) | DRG 775 ==
LOC: TRG 16:49 → APU 16:51 → LD 18:09 → TRG 18:41 → OB 07-13 09:58
PROVIDERS: ADMIT Obstetrics & Gynecology; ATTEND Obstetrics & Gynecology
PROC: 10E0XZZ Delivery of Products of Conception, External Approach (ICD-10-PCS; principal; 2022-07-13)
PROC: 3E0R3BZ Introduction of Anesthetic Agent into Spinal Canal, Percutaneous Approach (ICD-10-PCS; 2022-07-13)
PROC: 00HU33Z Insertion of Infusion Device into Spinal Canal, Percutaneous Approach (ICD-10-PCS; 2022-07-13)
DX: O80 Encounter for full-term uncomplicated delivery (principal); Z37.0 Single live birth; Z3A.39 39 weeks gestation of pregnancy; Z20.822 Contact with and (suspected) exposure to COVID-19
CPT/HCPCS: 36415; 85025; 85027; 86850; 86900; 86901; G0378; J3490; J0595; J2210; J2590; J3010; J7120; U0003